=== PATIENT | female | born 1990 | race African-American/Black ===

== ENCOUNTER 2021-04-08 17:25 | Observation (INO) | payer MEDICAID ==
[~2021-04-08] VITALS: Ht 160 cm; Wt 76.7 kg
[2021-04-08] MEDS ORDERED: ACETAMINOPHEN 500MG TABLET PO NR (18:30)
[2021-04-08] MEDS ORDERED: DEXT 5%/LACTATED RINGERS 1,000 ML IV SCH (18:30)
[2021-04-08 19:18] LABS: CLARITY URINE CLEAR (CLEAR); COLOR URINE YELLOW (YELLOW); KETONES URINE 2+ (NEGATIVE); LEUKOCYTE ESTERASE URINE NEGATIVE (NEGATIVE); NITRITE URINE NEGATIVE (NEGATIVE); OCCULT BLOOD URINE NEGATIVE (NEGATIVE); PROTEIN URINE NEGATIVE (NEGATIVE); UROBILINOGEN URINE 0.2 E.U./dL (0.2-1.0)
== END 2021-04-08 19:45 | disposition home or self-care (01) ==
LOC: 8 EST LDRP 17:25
PROVIDERS: ADMIT Obstetrics & Gynecology; ATTEND Obstetrics & Gynecology
DX: O99.891 Other specified diseases and conditions complicating pregnancy (principal); M54.5 Low back pain; Z3A.22 22 weeks gestation of pregnancy
CPT/HCPCS: 59025; 76805; 81003; G0378; 96360; 96361; 99281

== ENCOUNTER 2023-11-15 16:52 | Emergency (ER) | payer MEDICAID ==
[~2023-11-15] VITALS: Ht 154.9 cm; Wt 63.7 kg
[2023-11-15 17:03] VITALS: BP 149/95; PULSE 94; RESP 18; TEMP 98.4; O2SAT 99
== END 2023-11-15 19:54 | disposition left against medical advice (07) ==
LOC: ER 16:52
DX: R19.7 Diarrhea, unspecified (principal); Z53.21 Procedure and treatment not carried out due to patient leaving prior to being seen by health care provider
CPT/HCPCS: 99281